=== PATIENT | male | born 2000 | race African-American/Black ===

== ENCOUNTER 2019-02-19 04:42 | Emergency (ER) | payer OTHER ==
--- NOTE | 2019-02-19 06:17 | ED Physician Documentation ---
PD HPI LOWER EXT INJURY - Stated complaint Stated Complaint: LEFT KNEE PX - Chief complaint Chief Complaint: Trauma Ext - History obtained from History obtained from: Patient, Family - History of Present Illness PD HPI LOW EXT INJURY LOCATION: Left, Knee Type of injury: Fall, Twist Where injury occurred: Other (gym) Timing - onset: Enter time (1999), Last night Timing - duration: Hours Timing - details: Abrupt onset, Still present in ED Improved by: Rest, Immobilization Worsened by: Moving, Palpating Associated symptoms: Swelling Contributing factors: No: Anticoagulated Similar symptoms before: Diagnosis (knee sprain) Recently seen: Not recently seen - Additional information Additional information: Previously well 19-year-old male who is sprained both of his knees previously was playing basketball yesterday evening when he came down hard and twisted his knee. He has a lot of swelling in the knee and he has been unable to get comfortable throughout the night and unable to sleep. He is able to walk on this but has a limp and a feeling of instability. He has had a prior injury to the same knee in March of this year and he failed to follow-up. Review of Systems Constitutional: denies: Fever Eyes: denies: Decreased vision Ears: denies: Ear pain Nose: denies: Congestion Throat: denies: Sore throat Respiratory: denies: Dyspnea, Cough GI: denies: Vomiting PD PAST MEDICAL HISTORY - Past Medical History Past Medical History: No Cardiovascular: None Respiratory: None Neuro: None Endocrine/Autoimmune: None GI: None : None HEENT: None Psych: None Musculoskeletal: None Derm: None - Past Surgical History Past Surgical History: No - Present Medications Home Medications: Ambulatory Orders Medication Instructions Recorded Confirmed Hydrocodone/Acetaminophen 1 - 2 each PO Q6H PRN #14 tablet 02/19/19 [Hydrocodon-Acetaminophen 5-325] - Allergies Allergies/Adverse Reactions: Allergies Allergy/AdvReac Type Severity Reaction Status Date / Time No Known Drug Allergies Allergy Verified 02/19/19 04:59 - Social History Does the pt smoke?: No Smoking Status: Never smoker Does the pt drink ETOH?: No Does the pt have substance abuse?: No - Immunizations Immunizations are current?: Yes - POLST Patient has POLST: No PD ED PE NORMAL - Vitals Vital signs reviewed: Yes (hypertensive ) - General General: Alert and oriented X 3, No acute distress, Well developed/nourished - HEENT HEENT: Atraumatic, PERRL, EOMI - Respiratory Respiratory: No respiratory distress - Derm Derm: Normal color, Warm and dry, No rash - Extremities Extremities: Other (There is no obvious joint effusion to the left knee the patella is ballotable and there is laxity to the anterior cruciate and lateral collateral ligament. The opposite knee has some mild ligamentous laxity and in comparison to the left the left is more obvious. disatal n/v is intact. ) - Neuro Neuro: Alert and oriented X 3, suction plate carrier cleaner 2-12 intact, No motor deficit, No sensory de ficit, Normal speech Eye Opening: Spontaneous Motor: Obeys Commands Verbal: Oriented GCS Score: 15 - Psych Psych: Normal mood, Normal affect Results - Vitals Vitals: Vital Signs - 24 hr 02/19/19 02/19/19 04:56 07:07 Temperature 36.4 C L Heart Rate 71 65 Respiratory 17 16 Rate Blood Pressure 138/60 H 135/83 H O2 Saturation 100 98 Oxygen O2 Source Room air - Rads (name of study) knee Radiology: Prelim report reviewed (Impression: 1.5 cm osteochondral lesion at the lateral femoral condyle), EMP read indepedently, See rad report Procedures - Splint (location) left knee Splint applied by: Tech Type of splint: Other (knee immobilizer) Other: Patient tolerated well, No complications, Neurovascular intact, Good alignment PD MEDICAL DECISION MAKING - ED course Complexity details: reviewed results, re-evaluated patient, considered differential, d/w patient, d/w family ED course: 19-year-old male with an injury to his left knee appears to have lateral collateral ligament sprain and likely anterior cruciate ligament sprain and he is placed into a knee immobilizer. We will have him follow-up with orthopedics at [facility]. Departure - Departure Disposition: 01 Home, Self Care Clinical Impression: Left knee sprain Qualifiers: Encounter type: initial encounter Involved ligament of knee: lateral collateral ligament Qualified Code(s): S83.422A - Sprain of lateral collateral ligament of left knee, initial encounter Condition: Stable Instructions: ED Sprain Knee Collateral Ligaments Follow-Up: [facility] [Provider Group] Prescriptions: Hydrocodone/Acetaminophen [Hydrocodon-Acetaminophen 5-325] 1 - 2 each PO Q6H PRN #14 tablet PRN Reason: pain
[2019-02-19] MEDS ORDERED: HYDROcod/ACETAM 5/325 MG TABLET PO STA (06:19)
--- NOTE | 2019-02-19 06:55 | XRAY Report ---
Reason: lateral collateral ligament strain Procedure Date: 02/19/2019 Accession Number: [id number] / [id number] Procedure: XR - Knee 4 View LT CPT Code: Final Report FULL RESULT: EXAM: LEFT KNEE RADIOGRAPHY EXAM DATE: 02/19/2019 06:45 AM. CLINICAL HISTORY: Lateral collateral ligament strain. COMPARISON: None. TECHNIQUE: 3 views. FINDINGS: Bones: Chronic 1.5 cm osteochondral defect at the lateral femoral condyle. Remaining bone architecture and alignment appear intact. Joints: Small joint effusion. No subluxation. Soft Tissues: Normal. No soft tissue swelling. IMPRESSION: 1.5 cm osteochondral lesion at the lateral femoral condyle. RADIA
[2019-02-19 07:07] VITALS: BP 135/83
== END 2019-02-19 07:22 | disposition home or self-care (01) ==
LOC: ED 04:42
DX: S83.422A Sprain of lateral collateral ligament of left knee, initial encounter (principal); X50.1XXA Overexertion from prolonged static or awkward postures, initial encounter; Y93.67 Activity, basketball; Y92.39 Other specified sports and athletic area as the place of occurrence of the external cause
CPT/HCPCS: 73564; 99282; 99283; A9270

== ENCOUNTER 2019-03-03 10:08 | Outpatient (CLI) | payer OTHER ==
--- NOTE | 2019-03-03 15:42 | MRI Report ---
Reason: SPRAIN OF LT KNEE Procedure Date: 03/03/2019 Accession Number: [id number] / [id number] Procedure: MRI - Knee LT W/O CPT Code: Final Report FULL RESULT: EXAM: LEFT KNEE MRI WITHOUT CONTRAST EXAM DATE: 03/03/2019 11:06 AM. CLINICAL HISTORY: Left knee sprain. Pain and swelling. COMPARISON: 02/19/2019 radiograph. TECHNIQUE: Multiplanar, multisequence T1-weighted and fluid-sensitive sequences of the knee without contrast. Other: None. FINDINGS: Bones: No acute fractures. As seen on the prior radiograph, there is osteochondral lesion of the periphery of the lateral femoral condyle. This measures 1.1 x 1.1 x 0.7 cm. A small bone fragment measures 0.4 x 0.7 x 0.2 cm. It is from the remainder of the bone by 3 mm. This may not be completely unstable as there does appear to be some cartilage continuity of the fragments and remainder of the lateral femoral condyle anteriorly (701/7). However there is posterior and medial cartilage discontinuity. There is prominent marrow edema near the osteochondral lesion. Articular Cartilage: The articular cartilage in the medial and patellofemoral compartments is intact. Medial Meniscus: The medial meniscus is intact. Lateral Meniscus: The lateral meniscus is intact. Cruciate Ligaments: The anterior and posterior cruciate ligaments are intact. Collateral Ligaments: The medial collateral and lateral collateral ligamentous structures are intact. Tendons: The quadriceps, patellar, semimembranosus, and popliteus tendons are unremarkable. Musculature: No edema or fatty atrophy. Other: A moderate effusion is demonstrated. No popliteal cyst. No loose bodies. The medial and lateral retinacula are intact. The subcutaneous tissues and fat pads are unremarkable. IMPRESSION: 1. Osteochondral lesion of the lateral femoral condyle with a bone fragment that is only held in place by some cartilage continuity anteriorly. 2. Moderate knee effusion. RADIA
== END 2019-03-03 10:09 | disposition home or self-care (01) ==
LOC: DI 10:08
PROVIDERS: ATTEND Student in an Organized Health Care Education/Training Program
DX: S83.92XA Sprain of unspecified site of left knee, initial encounter (principal); M25.462 Effusion, left knee; M25.862 Other specified joint disorders, left knee